=== PATIENT | male | born 1970 | race Caucasian/White ===

== ENCOUNTER 2018-10-07 18:30 | Emergency (ER) | payer SELFPAY ==
[2018-10-07 18:31] VITALS: BP 107/69; PULSE 88; RESP 18; TEMP 36.2; O2SAT 97; BMI 25.7
[2018-10-07 20:13] VITALS: BP 127/74; PULSE 75; RESP 20; TEMP 36.4; O2SAT 96
[2018-10-07 20:46] VITALS: RESP 18; TEMP 36.4
[2018-10-07] MEDS: Ondansetron 4 MG/2 ML Vial IV (21:00)
[2018-10-07] MEDS: 0.9% Normal Saline 1,000 ML 1000 ML IV (21:00)
[2018-10-07 21:19] LABS: Absolute Lymphocyte Count 3.16 X10^3/ul (0.83-4.51); Absolute Neutrophil Count 6.1 X10^3/uL (2.0-7.7); Basophil# 0.04 X10^3/uL; Basophil% 0.4 % (0-1); Eosinophil# 0.14 X10^3/uL; Eosinophils% 1.4 % (0-5); Hematocrit 45.3 % (40-54); Hemoglobin 14.9 g/dl (13.0-16.5); Lymphocyte # 3.16 X10^3/ul (4.0); Lymphocyte % 31.6 % (19-41); Mean Corp Hgb Conc 32.9 g/gl (32-36); Mean Corpuscular Hgb 29.8 pg (27.0-32.0); Mean Corpuscular Volume 90.6 fL (80-94); Mean Platelet Vol. 10.1 fl (6.2-12.0); Monocyte# 0.54 X10^3/uL; Monocyte% 5.4 % (0-10); Neutrophil # 6.08 X10^3/uL (2.7-7.7); Neutrophil % 60.9 % (47-70); Platelet Count 221 K/mm3 (150-450); RBC Distribution Width CV 13.7 % (11.6-14.6); RBC Distribution Width SD 45.2 fl (35.1-43.9)
[2018-10-07 21:20] LABS: POSITIVE COUNT NO; POSITIVE DIFFERENTIAL NO; POSITIVE MORPHOLOGY NO
--- NOTE | 2018-10-07 21:30 | RAD_ITS ---
STUDY: X-RAY CHEST REASON FOR EXAM: Male, 48 years old. Congestion TECHNIQUE: PA and lateral COMPARISON: None. FINDINGS: There is coarsening of the markings in the mid and lower lung zones which may be consistent with bronchitis. No focal lobar infiltrates are observed. There is no demonstrated pleural abnormality. Normal size heart. Normal mediastinum and luciana. Normal visualized pulmonary arteries. Normal visualized aortic arch and descending thoracic aorta. Dorsal spine demonstrates moderate spondylosis. Normal visualized ribs, clavicles, and shoulders. There is no demonstrated abnormality of the visualized soft tissue structures of the upper abdomen. RAD/Chest PA and Lateral IMPRESSION: Findings which may be consistent with bronchitis. No focal lobar infiltration Electronically Signed: Patrice Raya MD at 21:57 EST , Service support ,
[2018-10-07 21:36] LABS: ALB/GLOB Ratio 0.7 RATIO (0.9-2.4); AST(SGOT) 126 U/L (15-37); Alanine Aminotransfer ALT/SGPT 222 U/L (16-61); Albumin, Serum 3.2 g/dL (3.2-5.0); Alkaline Phosphatase 151 U/L (45-117); Anion Gap 5 (5-15); BUN 23 mg/dL (7-18); BUN/Creat Ratio 23.5 RATIO (10-20); Calcium,Total 8.4 mg/dL (8.5-10.1); Chloride 104 mmol/L (98-107); Creatinine, Serum 0.98 mg/dL (0.70-1.30); EST Glomerular Filtration Rate 88 mL/min (>60); Est Glom Filt Rate - Afr Amer 106 mL/min (>60); Estimated Creatinine Clearance 100.31 ml/min; Globulin 4.4 g/dL (2.2-4.2); Glucose 84 mg/dL (74-106); Protein, Total 7.6 g/dL (6.4-8.2); Sodium Level 136 mmol/L (136-145)
[2018-10-07 22:13] VITALS: BP 134/74; PULSE 82; RESP 18; TEMP 36.8; O2SAT 98
--- NOTE | 2018-10-07 22:49 | ED.VISSUMM ---
- ER Visit Summary Date of Service: 10/07/18 Chief Complaint: Vomiting History of Present Illness: The patient is a 48 M with no primary care physician. He reports that he has been vomiting for the past week. States that is happening 1-2 times per day. He denies any abdominal pain or diarrhea. Reports his last bout was 3 days ago. Typically he goes daily. Patient reports he has had a subjective fever and chills. Reports he has a sore throat is 4-10 severity. He has a cough is productive of mccullough sputum without blood. Does report he is got mild shortness of breath. He complains of generalized weakness and a mild headache. Physical Examination: Vitals: Stable. Afebrile. General: Well-nourished and well-developed. Head: Normocephalic atraumatic. Neck: Supple, no lymphadenopathy. No JVD. Nontender. Cardiovascular: Regular rate and rhythm. No murmurs. Respiratory: No respiratory distress. Clear to auscultation bilaterally. Abdominal: Soft, nontender, nondistended, normal bowel sounds. No guarding, rebound, or peritoneal signs. Back: Nontender. Extremities: Nontender, no edema. Skin: Normal color, no rash. Neurologic: Alert and oriented ?3. Cranial nerves II through XII are intact. Normal strength and sensation. Psych: Normal affect. Test Results: CBC is normal. Chem-7 is more for BUN of 23 and calcium of 8.4. LFTs marked for alk phos of 151, ALT of 222, AST 126. There are no old LFTs for comparison. Chest x-ray shows no acute disease. Emergency Department Course and Treatment: Patient was treated with a liter bolus of normal saline. He was given Zofran IV. He has had no vomiting while here. He has been able to take liquids without difficulty. Treatment Plan: Patient will be discharged with Zofran. Instructed follow-up Dr. Ballard for further evaluation of his abnormal LFTs. He does have a history of IV drug abuse. However he, he reports he has not used in years. Return to the emergency department for any worsening symptoms. Disposition: To home in improved and stable condition. Impression: 1. URI. 2. Nausea/vomiting. 3. Abnormal LFTs. This note was generated with [employer] software. It may contain incorrect words, spelling, and punctuation that were not noted in review of the chart prior to signing ED Disposition - Plan for ED Patient: Disposition: Home or Assisted Living Instructions: ED Upper Resp Infec No Abx Tx, ED Nausea Vomiting Prescriptions: Ondansetron [Zofran Odt] 4 mg PO Q8H PRN PRN #10 tablet PRN Reason: Nausea Referrals: Whitney Ballard DO [STAFF PHYSICIAN] - 3-5 Days if not improving
== END 2018-10-07 23:05 | disposition home or self-care (01) ==
LOC: ED 21:23
PROVIDERS: Emergency Provider Emergency Medicine
DX: J06.9 Acute upper respiratory infection, unspecified (principal); R11.2 Nausea with vomiting, unspecified; R94.5 Abnormal results of liver function studies; Z72.0 Tobacco use
CPT/HCPCS: 36415; 71046; 80053; 85025; 96361; 96374; 99285; J7030; A4216; J2405

== ENCOUNTER 2019-04-04 20:49 | Emergency (ER) | payer SELFPAY ==
[2019-04-04 20:49] VITALS: BP 131/79; PULSE 94; RESP 15; TEMP 36.8; O2SAT 97; BMI 27.6
--- NOTE | 2019-04-04 21:21 | RAD_ITS ---
STUDY: X-RAY - RIGHT SHOULDER REASON FOR EXAM: Male, 48 years old. Pain TECHNIQUE: 4 view(s) of the shoulder. COMPARISON: None. FINDINGS: Normal glenohumeral articulation. Normal acromioclavicular joint. Normal acromion. Normal humeral head and visualized proximal humerus. The soft tissue structures are unremarkable. Normal visualized pulmonary apex. RAD/Shoulder min 2 Views IMPRESSION: Normal x-ray examination of the shoulder. Electronically Signed: Patel Chan DO at 21:35 EDT Tel [phone], Service support ,
--- NOTE | 2019-04-04 22:26 | RAD_ITS ---
STUDY: X-RAY - RIGHT ELBOW REASON FOR EXAM: Male, 48 years old. Fall TECHNIQUE: 3 view(s) of the elbow. COMPARISON: None. FINDINGS: Normal visualized humerus, radius and ulna. Normal radiocapitellar and ulnotrochlear articulations. The soft tissue structures are unremarkable. RAD/Elbow min 3 Views IMPRESSION: Normal x-ray examination of the elbow. Electronically Signed: Patel Chan DO at 23:04 EDT Tel [phone], Service support ,
--- NOTE | 2019-04-04 22:30 | RAD_ITS ---
STUDY: X-RAY CHEST REASON FOR EXAM: Male, 48 years old. Fall TECHNIQUE: Frontal and lateral views COMPARISON: October 07, 2018 FINDINGS: The lungs are clear and expanded. There is no demonstrated pleural abnormality. Normal size heart. Normal mediastinum and luciana. Normal visualized pulmonary arteries. Normal visualized aortic arch and descending thoracic aorta. Mild degenerative changes of the visualized thoracic spine. Normal visualized ribs, clavicles, and shoulders. There is no demonstrated abnormality of the visualized soft tissue structures of the upper abdomen. RAD/Chest PA and Lateral IMPRESSION: Normal x-ray examination of the chest. Electronically Signed: Patel Chan DO at 23:06 EDT Tel [phone], Service support ,
[2019-04-04] MEDS: HYDROcodone Bitartrate/Apap 5/325 Tablet PO (22:45)
--- NOTE | 2019-04-04 23:17 | ED.DCSUM_ITS ---
- ER Visit Summary Date of Service: 04/04/19 Chief Complaint: Fall History of Present Illness: The patient is a 48 M. He sustained a mechanical fall yesterday. He fell onto his right shoulder. He complains of right shoulder and right elbow pain. Symptoms are severe. Worse with movement and use. He does have some mild swelling into his right forearm. No head or neck injuries. No neurologic symptoms. No shortness of breath. Sometimes the pain radiates into his right chest. No abdominal pain, back pain, or other injuries. Physical Examination: Afebrile and vital signs unremarkable. Patient alert and oriented. Appears uncomfortable. Head and neck are atraumatic.. Mild tenderness to his right chest wall inferior to the clavicle. Clavicle nontender. No crepitus. Heart regular. Lungs clear. Shoulder diffusely tender to palpation. Pain with any movement. Skin is intact. Anterior elbow tender to palpation. Pain with pronation and supination. Skin intact. Neurovascularly intact distally. Mild edema to his right forearm. Compartments soft. Wrist and hand nontender. Pulses strong and equal. Strength and sensation intact. Test Results: X-rays of the chest, right shoulder, and right elbow are unremarkable. Emergency Department Course and Treatment: Patient received [place] for pain. Imaging to the injured areas was unremarkable. Patient is neurovascularly intact. No evidence of compartment syndrome. Skin unremarkable. I believe he is appropriate for outpatient follow-up. Rest with a sling. Pain meds. Ice. Return for new or worsening symptoms. Treatment Plan: As above Disposition: Discharge Impression: 1. Right arm pain This note was generated with [employer] dictation software. It may contain incorrect words, spelling, and punctuation that were not noted in review of the chart prior to signing ED Disposition - Plan for ED Patient: Referrals: Care Physician,No Primary [Primary Care Provider] -
--- NOTE | 2019-04-04 23:21 | ED.DEP ---
ED Disposition - Plan for ED Patient: Instructions: Shoulder Sprain Prescriptions: Hydrocodone Bitart/Apap 5-325 [[place] 5MG-325MG] 1 tab PO Q6H PRN PRN 3 Days #10 tab PRN Reason: Pain Prescription Printed Referrals: Tabitha Roldan [NON-STAFF] -
[2019-04-04 23:29] VITALS: BP 124/71; PULSE 74; RESP 17; O2SAT 96
== END 2019-04-04 23:30 | disposition home or self-care (01) ==
LOC: ED 22:25
PROVIDERS: Emergency Provider Emergency Medicine
DX: M25.511 Pain in right shoulder (principal); M25.521 Pain in right elbow; J44.9 Chronic obstructive pulmonary disease, unspecified; Z72.0 Tobacco use
CPT/HCPCS: 71046; 73030; 73080; 99283

== ENCOUNTER 2019-10-28 23:28 | Emergency (ER) | payer SELFPAY ==
[2019-10-28 23:29] VITALS: BP 139/78; PULSE 93; RESP 18; TEMP 36.7; O2SAT 98; BMI 31.1
--- NOTE | 2019-10-28 23:43 | ED.VIS.UPPEX ---
History of Present Illness Chief Complaint: Numb/Ting Narrative: Patient presenting secondary to right arm pain and burning. Patient reports that last night he was up late putting a transmission in his truck. He reports that he was in bed most of the day today because he was tired, but states that when he woke up he noted that he was having pain and burning in the entirety of his right arm going down into his right hand. He denies any weakness associated with this. He denies any numbness associated with this. No facial numbness or weakness or numbness or weakness to the leg, no changes in vision, no speech difficulties. Patient states that he took 4 ibuprofen prior to arrival, and it did not seem to alleviate his symptoms. He denies any prior similar events to the past. He denies any specific injuries associated with this such as a fall. Pain and burning is worse with movement. He denies any neck pain. Review of systems otherwise negative. Past Medical History - Allergies and Home Meds Allergies/Adverse Reactions: Allergies No Known Allergies Allergy (Verified 10/28/19 23:28) Primary Care Physician: Care Physician,No Primary [Primary Care Provider] - Past Medical History: None Smoking Status: Current every day smoker Review of Systems All systems negative except as indicated General: Denies: Chills, Fever, Sweats Eyes: Denies: Visual changes - bilaterally, Diplopia ENT: Denies: Rhinorrhea, Sore throat Cardiovascular: Denies: Chest pain, Palpitations Respiratory: Denies: Dyspnea, Cough, Dyspnea on exertion Gastrointestinal: Denies: Abdominal pain, Nausea, Vomiting, Diarrhea, Melena, Hematochezia Genitourinary: Denies: Dysuria, Hematuria, Frequency Musculoskeletal: Reports: Extremity Pain Skin: Denies: Rash, Wounds Neurological: Denies: Headache, Weakness, Numbness Physical Exam Vital Signs/Narrative: Vital Signs Temp Pulse Resp BP Pulse Ox 10/28/19 23:29 98.0 F 93 18 139/78 H 98 Inital Vital Signs reviewed: Yes Right Shoulder: - - Examination of the patient's right upper extremity shows normal sensation over all dermatomes, normal radial and ulnar pulses, normal capillary refill. Patient has 5 out of 5 strength at the shoulder elbow wrist and hand. He has 1+ brachioradialis biceps and triceps reflexes that are bilaterally symmetric. Patient has pain with range of motion of the shoulder, but no laxity with testing of the rotator cuff. Minimal crepitus with range of motion. No evidence of overlying warmth, erythema, or joint effusion. General: Well nourished, Well developed Head: Normocephalic, Atraumatic Eyes: EOMI ENT: No Trauma Neck: - - Reproduction of the patient's burning type pain in the shoulder and arm with axial loading of the neck. Negative for: Spinal Tenderness, Paraspinal Tenderness Cardiovascular: Regular rate, Regular rhythm, No murmurs Respiratory: No distress, CTA bilaterally, Chest nontender Back: - - Tenderness in the area of the patient's right rhomboid muscles, no underlying mass or muscle spasm Skin: Normal color, No rash Neurological: Alert, Oriented x3, Cranial nerves II-XII grossly intact, Normal Strength, Normal Sensation Psychological: Normal affect Diagnostic/Tx/Re-eval - Medical Decision Making Patient presented secondary to a burning type pain of the shoulder arm and hand. He has normal neurologic exam, I am not concerned for the possibility of stroke. He has a normal circulatory exam this does not seem to be a vascular issue. Likewise this was a precipitous onset, even though the patient is heavy smoker I do not feel that this is a presentation of a complication of malignancy. He has reproduction of his burning type pain with axial loading of the neck, and some pain in the shoulder. He likely has a combination of rotator cuff pain, and potentially a mild cervical radiculopathy. Patient will be started initially on a course of NSAIDs for pain relief and inflammation treatments. He will follow-up with primary care as needed. Disposition: Home ED Disposition - Plan for ED Patient: Disposition: Home or Assisted Living Diagnosis: Rotator cuff strain, Cervical radiculopathy Instructions: RADICULOPATHY, Cervical, Understanding Rotator Cuff Injuries Prescriptions: Naproxen [Naprosyn] 500 mg PO BID #20 tab Prescription Printed Referrals: Tabitha Roldan [NON-STAFF] - As Needed
== END 2019-10-29 | disposition home or self-care (01) ==
LOC: ED 23:54
PROVIDERS: Emergency Provider Emergency Medicine
DX: S46.011A Strain of muscle(s) and tendon(s) of the rotator cuff of right shoulder, initial encounter (principal); M54.12 Radiculopathy, cervical region; X50.9XXA Other and unspecified overexertion or strenuous movements or postures, initial encounter; Z72.0 Tobacco use
CPT/HCPCS: 99282

== ENCOUNTER 2022-02-11 01:38 | Emergency (ER) | payer SELFPAY ==
[2022-02-11 01:39] VITALS: BP 122/89; PULSE 101; RESP 18; TEMP 36.9; O2SAT 97; BMI 29.9
[2022-02-11 01:43] VITALS: BP 128/78; PULSE 95; RESP 18; TEMP 36.9; O2SAT 97
[2022-02-11] MEDS: Cephalexin 250 MG Capsule 500 MG PO (02:14)
[2022-02-11 02:21] LABS: Bedside Glucose 140 mg/dL (74-106)
--- NOTE | 2022-02-11 02:37 | EDS_ITS ---
HPI History of Present Illness Chief Complaint: Wound Informant: patient Narrative Narrative: Patient here for evaluation wound to the right ankle. Initial rash reported 6 days ago. States not scratching at it. Wound developed. No fevers. Went to urgent care Sunday placed on Keflex and Neosporin. Seen states takes it when he remembers. He is not diabetic however is not seen physician in a long time. Denies polyuria polydipsia. He does report history of liver issues due to previous history of IV drug use. Confirms hepatitis C. Also reports history of kidney issues. Reviewing previous old labs however had normal creatinine. Denies drainage. 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 PFSH PFSH Home Medications cephalexin 500 mg PO Q6H 02/11/22 [History Last Taken Unknown] Allergy/AdvReac Type Severity Reaction Status Date / Time No Known Allergies Allergy Verified 10/28/19 23:28 Social History Smoking Status: Current every day smoker tobacco type: cigarettes ROS ROS ED Constitutional Constitutional ED: Denies chills, fever(s) or sweats Eyes Eyes: Denies change in vision ENT ENT ED: Denies dysphagia or sore throat Cardiovascular Cardiovascular: Denies chest pain, leg edema, palpitations or racing heartbeat Respiratory/Chest Respiratory/Chest: Denies cough, dyspnea or dyspnea on exertion Gastrointestinal Gastrointestinal: Denies abdominal pain, diarrhea, nausea or vomiting Genitourinary Genitourinary ED: Denies dysuria, hematuria or urinary frequency Musculoskeletal Musculoskeletal: Denies back pain, extremity pain or neck pain Integumentary Reports other Details: Right lower extremity wound ; Denies rash or wounds Neurologic Neurologic: Denies headache(s), paresthesias or weakness EXAM Physical Exam Const Vital Signs: 02/11/22 01:39 02/11/22 01:43 Temperature 98.4 F 98.4 F Temperature Source Oral Oral Pulse Rate 101 H 95 Respiratory Rate 18 18 Blood Pressure 122/89 H 128/78 H Blood Pressure Mean 100 94 Pulse Ox 97 97 Oxygen Delivery Method Room Air Room Air Positive well nourished and well developed General Appearance ED: well developed and NAD HEENT Reports moist mucous membranes normocephalic and atraumatic Eyes PERRL, EOMs intact bilaterally and conjunctivae normal General Eye ED: Yes normal appearance of both eyes Neck no lymphadenopathy and supple General: Negative for tenderness Chest Wall Chest: Negative for tenderness Resp normal respiratory effort and normal air movement Effort and Inspection: symmetric chest movement; Negative for respiratory distress Cardio regular rate, regular rhythm and no murmurs Peripheral Pulses: pulses 2+ throughout GI normal to inspection, nondistended, normoactive bowel sounds and non-tender Palpation: Negative for guarding or rebound tenderness present Back/Spine no CVA tenderness and no thoracic nor lumbar tenderness Extremity normal to inspection General Extremety ED: Negative for edema or tenderness General Extremity: Negative for edema Neuro oriented x3 and no sensory deficits noted Sensorium / Orientation: awake and alert Skin Skin Narrative: Right lower extremity: Medial ankle 2 x 3 cm ulceration with scabbing there is mild erythema around the edges and distal. There is no streak ing. No induration. There were excoriations with scratching and scabbing posterior calf. Nontender. Nonbleeding. Neurovascular intact distally. MDM MDM MDM Narrative Medical decision making narrative: Fingerstick random glucose 140. Erythema was outlined. Patient not being compliant with his medications. Discussed appropriate wound care. He was given his dose of Keflex in the ED. He will continue this at home. Topical ointment as needed. He is given follow-up with wound care as an outpatient to follow and continue treatment. All questions were answered. Lab Data Labs: Laboratory Results - last 24 hr 02/11/22 02:14 POC Glucose 140 H Discharge Plan Triage Chief Complaint: Wound ED Provider: Getachew Boyd Dx/Rx/DC Orders Clinical Impression: Ulcer of right lower extremity, Cellulitis of leg, right Instructions: ED Cellulitis, ED Wound Care Prescriptions: No Action cephalexin 500 mg capsule 500 mg PO Q6H RF: 0 Primary Care Provider: Care Physician,No Primary Referrals: Care Physician,No Primary [Primary Care Provider] - Activity Restrictions/Additional Instructions: Continue and finish your oral antibiotic. Continue the topical antibiotic once twice a day. Call wound clinic for follow up. . Disposition Disposition: Home, Self Care
== END 2022-02-11 02:44 | disposition home or self-care (01) ==
PROVIDERS: Emergency Provider Emergency Medicine; Visit Provider Emergency Medicine
DX: L97.919 Non-pressure chronic ulcer of unspecified part of right lower leg with unspecified severity (principal); L03.115 Cellulitis of right lower limb; F17.210 Nicotine dependence, cigarettes, uncomplicated; Z79.899 Other long term (current) drug therapy
CPT/HCPCS: 82962; 99282

== ENCOUNTER 2022-06-16 09:00 | Inpatient (IN) | payer MEDICAID, SELFPAY ==
[2022-06-16 09:01] VITALS: BP 172/99; PULSE 78; RESP 16; TEMP 36.4; O2SAT 100; BMI 25.7
--- NOTE | 2022-06-16 09:53 | EX.ED.SAOD ---
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 Patient states that his safety and security officer told him he needed to come to the hospital for detox from this. Patient states his last use was approximately 2 days ago. Patient denies any fevers or chills. Patient denies any nausea or vomiting. Patient admits to a cough but denies any sputum production. Patient also admits to a mild headache. Patient denies any suicidal or homicidal ideations. Patient denies any seizures or tremors. Patient denies any prior detox. PFSH PFSH Medical History no medical history no medical history Home Medications cephalexin 500 mg capsule 500 mg PO Q6H 02/11/22 [History Last Taken Unknown] Allergy/AdvReac Type Severity Reaction Status Date / Time No Known Allergies Allergy Verified 10/28/19 23:28 Surgical History (Updated 06/16/22 @ 09:[address] Otto Flores DO) History of surgery on upper extremity Social History (Updated 06/16/22 @ 09:[address] Otto Flores DO) Smoking Status: Current every day smoker tobacco type: cigarettes substance use type: opiates and methamphetamine ROS ROS ED Constitutional Constitutional ED: Denies chills or fever(s) Eyes Eyes: Reports blurry vision; Denies diplopia ENT ENT ED: Denies rhinorrhea or sore throat Cardiovascular Cardiovascular: Denies chest pain or palpitations Respiratory/Chest Respiratory/Chest: Reports cough; Denies dyspnea Gastrointestinal Gastrointestinal: Denies nausea or vomiting Genitourinary Genitourinary ED: Denies dysuria or hematuria Musculoskeletal Musculoskeletal: Denies back pain or neck pain Integumentary Denies abscess or rash Neurologic Neurologic: Reports headache(s); Denies weakness Allergic/Immunologic Allergic/Immunologic ED: Denies mouth swelling or urticaria EXAM Physical Exam Const Vital Signs: 06/16/22 09:01 Temperature 97.5 F L Temperature Source Temporal Pulse Rate 78 Respiratory Rate 16 Blood Pressure 172/99 H Blood Pressure Mean 123 Pulse Ox 100 Oxygen Delivery Method Room Air Positive well nourished and well developed General Appearance ED: well developed HEENT Reports moist mucous membranes Neck supple and no JVD Resp normal respiratory effort and clear to auscultation bilaterally Cardio regular rate, regular rhythm and no murmurs GI normal to inspection, nondistended, normoactive bowel sounds and non-tender Palpation: soft Extremity normal to inspection General Extremety ED: Negative for edema or tenderness General Extremity: Negative for edema Neuro oriented x3, CN's II-XII intact bilaterally and no sensory deficits noted Sensorium / Orientation: alert Motor Exam: strength 5/5 throughout Psych mental status grossly normal Skin no rashes or lesions noted MDM MDM MDM Narrative Medical decision making narrative: Basic labs were obtained and are pending. Case was discussed with the hospitalist. She will admit the patient to her service. Patient understood and was agreeable with the plan. All questions were answered. Discharge Plan Triage Chief Complaint: Substance Abuse ED Provider: Otto Flores Dx/Rx/DC Orders Clinical Impression: Opiate withdrawal, Substance abuse Prescriptions: No Action cephalexin 500 mg capsule 500 mg PO Q6H Label Comments: take 1 capsule by mouth four times a day for 5 days Primary Care Provider: Care Physician,No Primary Referrals: Care Physician,No Primary [Primary Care Provider] - Disposition Disposition: Acute Care Hospital [facility]
[2022-06-16 10:15] VITALS: BP 172/99; PULSE 78; RESP 16; TEMP 36.4; O2SAT 100
--- NOTE | 2022-06-16 10:17 | HP.PCM.HOS_ITS ---
HPI - General General Date of Admission: 06/16/22 Date of Service: 06/16/22 Chief Complaint: Request for medical stabilization from opioids HPI Narrative TOREY MORENO, is a 51 M who presents with the above. Patient stated he uses meth laced with fentanyl. He was recommended to get clean by his surveillance dual rate officer. He last used meth with fentanyl a couple of days prior to admission. He admits to smoking more than 1 pack of cigarettes a day. He denied any fever or chills goosebumps. His vitals in the ED were stable except for blood pressure 172/99. His admitting blood work showed white cell count of 11.6, hemoglobin 14.1, platelet count 230, CMP was unremarkable. Urine tox was positive for amphetamines and ecstasy [facility] Medical History Substance abuse Medical History no medical history Home Medications cephalexin 500 mg capsule 500 mg PO Q6H 02/11/22 [History Last Taken Unknown] Allergy/AdvReac Type Severity Reaction Status Date / Time No Known Allergies Allergy Verified 10/28/19 23:28 no significant family history Surgical History History of surgery on upper extremity Social History (Updated 06/16/22 @ 18:[address] Mouna Jon MD) Smoking Status: Current every day smoker tobacco type: cigarettes alcohol intake: former substance use type: opiates and methamphetamine ROS ROS Narrative Constitutional:Denies: Anorexia, Chills, Fever, Night Sweats, Weight Change Eyes: Denies: Blurred vision, Cataracts, Conjunctivae Inflammation, Pain, Redness, Vision Change HEENT: Denies: Difficulty Hearing, Difficulty Swallowing, Head Aches, Hearing Changes, Sinus Congestion, Sinus Drainage Cardiovascular: Denies: Chest Pain, Orthopnea, Palpitations Respiratory: Denies: Cough, Shortness of breath at rest, Sputum production Gastrointestinal: Denies: Abdominal Pain, Nausea, Vomiting Genitourinary: Denies: Dysuria Musculoskeletal: Denies: Joint Pain, Joint stiffness, Joint swelling, Joint Tenderness Skin: Denies: Rash, Wounds Neurological: Denies: Numbness, Tingling, Focal weakness Vital Signs Vital Signs Vital Signs: 06/16/22 09:01 06/16/22 10:15 Temperature 97.5 F L 97.5 F L Temperature Source Temporal Temporal Pulse Rate 78 78 Respiratory Rate 16 16 Blood Pressure 172/99 H 172/99 H Blood Pressure Mean 123 123 Pulse Ox 100 100 Oxygen Delivery Method Room Air Room Air Weight Weight: 83.915 kg Body Mass Index (BMI) 25.7 Physical Exam Narrative Physical exam: General: Alert, Oriented x3, Cooperative, No apparent distress, appears unkempt HEENT: Atraumatic Oral: Moist Mucosa Neck: Supple Lungs: Clear to auscultation Cardiovascular: HS I+II, regular, no murmurs Abdomen: Bowel Sounds Present, Soft, Non Tender Extremities: No edema Skin: Multiple track lawson on the body Neurological: Grossly intact Psych/Mental Status: Appropriate Results Lab / Micro Data Result Diagrams: 06/16/22 10:10 06/16/22 10:10 Assessment & Plan Assessment/Plan (1) Opiate withdrawal: (2) Substance abuse: PLAN: Plan 1. Request for medical stabilization from acute opioid withdrawal Admit to [facility], continue on opioid withdrawal protocol 2. Nicotine dependence, advised to quit 3. Leukocytosis, likely reactive, will try 4. DVT prophylaxis?low risk, early ambulation commended Charges/Coding Visit Charges Inpatient E&M: 50990 Init Hosp L2
--- NOTE | 2022-06-16 10:18 | CM.ED ---
MARYANNE Note Referral Source: RAMP Referral Reason: RAMP SW met with patient. He prefers the name Jeremy . He reports that he is her for detox for meth and whatever my PO found in my piss test. Per RN glenis was positive for ice and Larisa. Patient reports that he has medicaid. His last use was a couple of days ago. Patient reports that he has an appointment on the with Polly. Patient verbalized understanding of the rules for the RAMP program. Plan: RAMP admission Daisy JIMENEZ
--- NOTE | 2022-06-16 10:19 | NURSING ---
[facility] OPIATE WITHDRAWAL, SUBSTANCE ABUSE
[2022-06-16 10:23] LABS: Absolute Lymphocyte Count 2.39 X10^3/uL (0.83-4.51); Absolute Neutrophil Count 7.9 X10^3/uL (2.0-7.7); Basophil# 0.06 X10^3/uL; Basophil% 0.5 % (0-1); Eosinophil# 0.32 X10^3/uL; Eosinophils% 2.8 % (0-5); Hematocrit 43.4 % (40-54); Hemoglobin 14.1 g/dL (13.0-16.5); Lymphocyte # 2.39 X10^3/ul (0.83-4.51); Lymphocyte % 20.6 % (19-41); Mean Corp Hgb Conc 32.5 g/dL (32-36); Mean Corpuscular Hgb 28.8 pg (27.0-32.0); Mean Corpuscular Volume 88.8 fL (80-94); Mean Platelet Vol. 10.2 fl (6.2-12.0); Monocyte# 0.95 X10^3/uL; Monocyte% 8.2 % (0-10); NRBC Flagged by Analyzer 0 % (0-5); Neutrophil # 7.87 X10^3/uL (2.7-7.7); Neutrophil % 67.6 % (47-70); Platelet Count 230 K/mm3 (150-450); RBC Distribution Width CV 13.4 % (11.6-14.6); RBC Distribution Width SD 43.6 fl (35.1-43.9); Red Blood Count 4.89 M/mm3 (4.6-6.2); White Blood Count 11.6 K/mm3 (4.4-11.0)
--- NOTE | 2022-06-16 10:26 | CM.ED ---
MARYANNE called and spoke to Jemal, addiction therapist, and updated her regarding patient. Daisy SEPULVEDA
[2022-06-16 10:36] LABS: Alcohol, Blood (Medical)-Serum < 3.0 mg/dL
[2022-06-16 10:41] LABS: ALB/GLOB Ratio 0.8 RATIO (0.9-2.4); AST(SGOT) 28 U/L (15-37); Alanine Aminotransfer ALT/SGPT 37 U/L (16-61); Albumin, Serum 3.3 g/dL (3.2-5.0); Alkaline Phosphatase 97 U/L (45-117); Anion Gap 6 (5-15); BUN 20 mg/dL (7-18); BUN/Creat Ratio 19.6 RATIO (10-20); Calcium,Total 9.1 mg/dL (8.5-10.1); Chloride 107 mmol/L (98-107); Creatinine, Serum 1.02 mg/dL (0.70-1.30); EST Glomerular Filtration Rate 82 mL/min (>60); Est Glom Filt Rate - Afr Amer 100 mL/min (>60); Glucose 109 mg/dL (74-106); Potassium 4.2 mmol/L (3.5-5.1); Protein, Total 7.3 g/dL (6.4-8.2); Sodium Level 139 mmol/L (136-145)
[2022-06-16 10:44] LABS: Amphetamine Urine VISTA POSITIVE (<1000 ng/mL); Barbiturate Urine VISTA NEGATIVE (< 200 ng/mL); Benzodiazepine Urine VISTA NEGATIVE (< 200 ng/mL); Cocaine Urine VISTA NEGATIVE (< 300 ng/mL); Ecstacy Urine VISTA POSITIVE (< 500 ng/mL); Methadone Urine VISTA NEGATIVE (< 300 ng/mL); PCP Urine VISTA NEGATIVE (< 25 ng/mL); THC Urine VISTA NEGATIVE (< 50 ng/mL); Vista UDS pH Range 6
[2022-06-16 12:23] VITALS: BMI 29.7
[2022-06-16 13:00] VITALS: BP 139/95; PULSE 81; RESP 16; TEMP 36.4; O2SAT 97
[2022-06-16 20:00] VITALS: BP 140/89; PULSE 88; RESP 18; TEMP 36.6; O2SAT 97
[2022-06-17 02:00] VITALS: BP 118/68; BP 150/89; PULSE 82; PULSE 91; RESP 18; TEMP 36.4; TEMP 36.7; O2SAT 97; O2SAT 98
[2022-06-17 08:00] VITALS: BP 126/84; PULSE 84; RESP 16; TEMP 36.8; O2SAT 97
--- NOTE | 2022-06-17 08:08 | PN.HOSP_ITS ---
Subjective Subjective Follow-up on acute opioid withdrawal: Patient was seen and examined. Denied any new complaints. No acute events o vernight. Objective Data Objective Data Vital Signs: Vital Signs Temp Pulse Resp BP Pulse Ox O2 Del Method 97.5 F L 82 18 118/68 97 Room Air 06/17/22 02:00 06/17/22 02:00 06/17/22 02:00 06/17/22 02:00 06/17/22 02:00 06/17/22 02:00 Oxygen Delivery Method Room Air Weight: 97.931 kg Body Mass Index (BMI) 29.7 Intake & Output: Intake and Output for Last 24 Hours 06/15/22 06/16/22 06/17/22 23:59 23:59 23:59 Intake Total 320 / 320 Balance 320 / 320 Lab / Micro Data Result Diagrams: 06/16/22 10:10 06/16/22 10:10 Labs: Laboratory Results - last 24 hr 06/16/22 10:10: WBC 11.6 H, RBC 4.89, Hgb 14.1, Hct 43.4, MCV 88.8, MCH 28.8, MCHC 32.5, RDW Std Deviation 43.6, RDW Coeff of Cleo 13.4, Plt Count 230, MPV 10.2, Immature Gran % (Auto) 0.300, Neut % (Auto) 67.6, Lymph % (Auto) 20.6, [place] % (Auto) 8.2, Eos % (Auto) 2.8, Baso % (Auto) 0.5, Absolute Neuts (auto) 7.9 H, Absolute Lymphs (auto) 2.39, Nucleated RBC % 0 06/16/22 10:10: Sodium 139, Potassium 4.2, Chloride 107, Carbon Dioxide 26.0, Anion Gap 6, BUN 20 H, Creatinine 1.02, Estim Creat Clear Calc 93.30, Est GFR (MDRD) Af Amer 100, Est GFR (MDRD) Non-Af 82, BUN/Creatinine Ratio 19.6, Glucose 109 H, Calcium 9.1, Total Bilirubin 0.40, AST 28, ALT 37, Alkaline Phosphatase 97, Total Protein 7.3, Albumin 3.3, Globulin 4.0, Albumin/Globulin Ratio 0.8 L 06/16/22 10:10: Ethyl Alcohol < 3.0 06/16/22 10:15: Urine Opiates Screen NEGATIVE, Urine Methadone Screen NEGATIVE, Ur Barbiturates Screen NEGATIVE, Ur Phencyclidine Scrn NEGATIVE, Ur Amphetamines Screen POSITIVE H, MDMA (Ecstasy) Screen POSITIVE H, U Benzodiazepines Scrn NEGATIVE, Urine Cocaine Screen NEGATIVE, U Cannabinoids Screen NEGATIVE, Ur Drug Screen Comment Physical Exam Narrative Physical exam: General: Alert, Oriented x3, Cooperative, No apparent distress HEENT: Atraumatic Oral: Moist Mucosa Neck: Supple Lungs: Clear to auscultation Cardiovascular: HS I+II, regular, no murmurs Abdomen: Bowel Sounds Present, Soft, Non Tender Extremities: No edema Skin: Multiple track lawson on the body Neurological: Grossly intact Psych/Mental Status: Appropriate Assessment & Plan Assessment/Plan (1) Opiate withdrawal: (2) Substance abuse: PLAN: Plan 1. Acute opioid withdrawal, improving Continue on opioid withdrawal protocol 2. Nicotine dependence, advised to quit 3. Leukocytosis, reactive, will monitor 4. DVT prophylaxis?low risk, early ambulation commended Charges/Coding Visit Charges Inpatient E&M: 06325 Subs Hosp L2
--- NOTE | 2022-06-17 16:01 | NURSING ---
Patient left AMA before discharge order was put in computer.
== END 2022-06-17 15:40 | disposition left against medical advice (07) | DRG 770 ==
LOC: ED 10:24 → MS3 10:31
PROVIDERS: Admitting Provider Internal Medicine; Emergency Provider Emergency Medicine; Visit Provider Internal Medicine
DX: F11.13 Opioid abuse with withdrawal (principal); F17.210 Nicotine dependence, cigarettes, uncomplicated; F15.13 Other stimulant abuse with withdrawal
CPT/HCPCS: 36415; 80053; 80307; 82077; 85025; 99283; 99406